=== PATIENT | female | born 1980 | race Caucasian/White ===

== ENCOUNTER 2025-03-24 15:49 | Emergency (ER) | payer SELFPAY ==
[2025-03-24] VITALS (10 sets, daily range): BP systolic 110–166; BP diastolic 76–114; PULSE 73–106; RESP 17–100; TEMP 36.2–37; O2SAT 97–100; BMI 34.0
--- NOTE | 2025-03-24 16:11 | CT_ITS ---
PROCEDURE INFORMATION: Exam: CT Head Without Contrast Exam date and time: 03/24/2025 5:32 PM Age: 44 years old Clinical indication: Pain; Headache; Additional info: Worse GEORGE TECHNIQUE: Imaging protocol: Computed tomography of the head without contrast. Radiation optimization: All CT scans at this facility use at least one of these dose optimization techniques: automated exposure control; mA and/or kV adjustment per patient size (includes targeted exams where dose is matched to clinical indication); or iterative reconstruction. COMPARISON: CT HEAD/BRAIN WO CON 03/24/2025 5:32 PM FINDINGS: Brain: No acute intracranial hemorrhage, midline shift, or mass effect. Cerebral ventricles: No ventriculomegaly. Paranasal sinuses: Visualized sinuses are unremarkable. No fluid levels. Mastoid air cells: Visualized mastoid air cells are well aerated. Teeth: Edentulism. Scattered dental caries and periapical lucencies. Bones: Unremarkable. No acute fracture. Soft tissues: Unremarkable. IMPRESSION: No acute intracranial findings.
--- NOTE | 2025-03-24 16:11 | CT_ITS ---
PROCEDURE INFORMATION: Exam: CTA Head With Contrast, Arteriography Exam date and time: 03/24/2025 5:35 PM Age: 44 years old Clinical indication: Headache and visual disturbance; Type not specified; Additional info: Worse GEORGE, positional TECHNIQUE: Imaging protocol: Computed tomographic angiography of the head with contrast. Exam focused on the arteries. 3D rendering (Not supervised by radiologist): MIP and/or 3D reconstructed images were created by the technologist. Radiation optimization: All CT scans at this facility use at least one of these dose optimization techniques: automated exposure control; mA and/or kV adjustment per patient size (includes targeted exams where dose is matched to clinical indication); or iterative reconstruction. Contrast material: ISOVUE; Contrast volume: 80 ml; Contrast route: INTRAVENOUS (IV); COMPARISON: CT HEAD/BRAIN WO CON 03/24/2025 5:32 PM FINDINGS: ANTERIOR CIRCULATION: Right internal carotid artery: Intracranial segment is patent with no significant stenosis. No aneurysm. Right middle cerebral artery: No occlusion or significant stenosis. No aneurysm. Right anterior cerebral artery: No occlusion or significant stenosis. No aneurysm. Left internal carotid artery: Intracranial segment is patent with no significant stenosis. No aneurysm. Left middle cerebral artery: No occlusion or significant stenosis. No aneurysm. Left anterior cerebral artery: No occlusion or significant stenosis. No aneurysm. POSTERIOR CIRCULATION: Right vertebral artery: No occlusion or significant stenosis. No aneurysm. Left vertebral artery: No occlusion or significant stenosis. No aneurysm. Basilar artery: No occlusion or significant stenosis. No aneurysm. Right posterior cerebral artery: No occlusion or significant stenosis. No aneurysm. Left posterior cerebral artery: No occlusion or significant stenosis. No aneurysm. Brain: No definite mass, mass effect, or midline shift. Cerebral ventricles: No ventriculomegaly. Bones/joints: Unremarkable. No acute fracture. Soft tissues: Unremarkable. IMPRESSION: No large vessel occlusion or flow-limiting stenosis. PROCEDURE INFORMATION: Exam: CTA Neck With Contrast Exam date and time: 03/24/2025 5:35 PM Age: 44 years old Clinical indication: Headache and visual disturbance; Type not specified; Additional info: Worse GEORGE, positional TECHNIQUE: Imaging protocol: Computed tomographic angiography of the neck with contrast. Exam focused on the cervical segments of the vasculature. 3D rendering (Not supervised by radiologist): MIP and/or 3D reconstructed images were created by the technologist. Radiation optimization: All CT scans at this facility use at least one of these dose optimization techniques: automated exposure control; mA and/or kV adjustment per patient size (includes targeted exams where dose is matched to clinical indication); or iterative reconstruction. Contrast material: ISOVUE; Contrast volume: 75 ml; Contrast route: INTRAVENOUS (IV); COMPARISON: CT HEAD/BRAIN WO CON 03/24/2025 5:32 PM FINDINGS: Right common carotid artery: No stenosis. No dissection or occlusion. Right internal carotid artery: No stenosis of the extracranial segment. No dissection or occlusion. Right external carotid artery: No occlusion or stenosis of the origin. Left common carotid artery: No stenosis. No dissection or occlusion. Left internal carotid artery: No stenosis of the extracranial segment. No dissection or occlusion. Left external carotid artery: No occlusion or stenosis of the origin. Right vertebral artery: No stenosis. No dissection or occlusion. Left vertebral artery: Mild irregular luminal narrowing of the distal V3 segment with the suggestion of a suboccipital rind sign. Soft tissues: Unremarkable. Bones/joints: No acute fracture. IMPRESSION: Mild irregular luminal narrowing of the left vertebral artery distal V3 segment with the suggestion of a suboccipital rind sign, findings which may indicate intramural hematoma in the setting of dissection or vasculitis. REFERENCES: NASCET CRITERIA. The degree of stenosis in the cervical segment of the internal carotid artery is based on NASCET criteria. Normal is no stenosis. Mild is less than 50% stenosis. Moderate is 50-69% stenosis. Severe is 70% to 99% stenosis. Total occlusion is no detectable patent lumen.
--- NOTE | 2025-03-24 16:14 | CT_ITS ---
PROCEDURE INFORMATION: Exam: CTA Head With Contrast, Venography Exam date and time: 03/24/2025 5:35 PM Age: 44 years old Clinical indication: Pain; Headache and visual disturbance; Cta head/neck sent; Additional info: Headache dizzy blurry vision TECHNIQUE: Imaging protocol: Computed tomography angiography of the head with contrast. Exam focused on the veins. 3D rendering (Not supervised by radiologist): MIP and/or 3D reconstructed images were created by the technologist. Radiation optimization: All CT scans at this facility use at least one of these dose optimization techniques: automated exposure control; mA and/or kV adjustment per patient size (includes targeted exams where dose is matched to clinical indication); or iterative reconstruction. Contrast material: ISOVUE; Contrast volume: 80 ml; Contrast route: INTRAVENOUS (IV); COMPARISON: CT HEAD/BRAIN WO CON 03/24/2025 5:32 PM FINDINGS: Superior sagittal sinus: Patent. Straight sinus: Patent. Transverse sinuses: Patent. Sigmoid sinuses: Patent. Internal jugular veins: Limited visualized internal jugular veins are patent. Brain: No definite mass, mass effect, or midline shift. Cerebral ventricles: No ventriculomegaly. Soft tissues: Unremarkable. IMPRESSION: No evidence of dural venous sinus thrombosis.
--- OUTSIDE RECORDS SUMMARY | 2025-03-24 16:22 | XMS_ITS | Clinical Summary ---
Author Organization [facility] Address [address] [place] [address] Care Team Providers Care Laundry Tech Name Role Phone Mara Heredia MD Primary Care Provider [phone] Allergies Active Allergy Reactions Criticality Noted Date Comments Latex Other (See Comments) 03/29/2021 Skin blisters Oxycodone-Acetaminophen Rash Low 06/05/2014 Sulfa Antibiotics Itching 02/13/2021 Tilactase GI Intolerance Low 12/10/2017 Medications ibuprofen (ADVIL,MOTRIN) 800 MG tablet Take 800 mg by mouth Every 8 (Eight) Hours As Needed for Mild Pain . for pain 12/14/2020 Active losartan (COZAAR) 25 MG tablet Take 25 mg by mouth Daily. 01/04/2021 Active desvenlafaxine (PRISTIQ) 50 MG 24 hr tablet Take 50 mg by mouth Daily. 05/11/2021 Active HYDROcodone-acet aminophen (Beaver) 5-325 MG per tabletIndication s:S/P endometrial ablation Take 2 tablets by mouth Every 6 (Six) Hours As Needed for Severe Pain. 10 tablet 05/30/2021 11:45 AM EST 05/30/2021 Active Active Problems Problem Noted Date Diagnosed Date S/P endometrial ablation: 05/30/21 05/30/2021 Menorrhagia with regular cycle 02/13/2021 HPV exposure 02/13/2021 Dysmenorrhea 02/13/2021 Overweight (BMI 25.0-29.9) 02/13/2021 Adopted 02/13/2021 Screening for condition 02/13/2021 Resolved Problems Problem Noted Date Diagnosed Date Resolved Date Encounter for tubal ligation 02/13/2021 05/07/2021 Immunizations Immunization Administration Dates Next Due Hepatitis A 10/19/2018,03/08/2018 Tdap 07/13/2009 Social History Tobacco Use Types Packs/Day Years Used Date Smoking Tobacco: Every Day Cigarettes 1 20 Smokeless Tobacco: Never Alcohol Use Standard Drinks/Week Comments Not Currently 0 (1 standard drink = 0.6 oz pur e alcohol) Abuse Screen Answer Date Recorded Unsafe at Home or Work/School Not on file Feels Threatened by Someone? Not on file Does Anyone Keep You from Co ntacting Others or Doint Things Outside the Home? Not on file 04/24/2023 Physical Sign of Abuse Present Not on file 1 Housing Stability Answer Date Recorded Current Living Arrangements Not on file 04/12 Potentially Unsafe Housing Conditions Not on willis e 04/24/2023 Family and Community Support Answer Sawyer e Recorded Help with Day-to-Day Activities Not on file 04/24/2023 Lonely or Isolated Not on file 04/24/2023 Employment Answer Date Recorded Do you want help finding or keeping work or a dante b? Not on file 04/24/2023 Disabilities Answer Date Recorded Concentrating, Remembering, or Making Decisions Difficulty Not on file 04/24/2023 Doing Errands Independently Difficulty Not on fi le 04/24/2023 Education Answer Date Recorded Help with school or training? Not on file Preferred Language Not on file 04/24/2023 Comments No Sex and Gender Information Value Date Recorded Sex Assigned at Not on file Legal Sex Female 11:21 AM EDT Gender Identity Not on file Sexual Orientation Not on file Last Filed Vital Signs Vital Sign Reading Time Taken Comments Blood Pressure 136/86 06/12/2021 9:04 AM EST Pulse 66 05/30/2021 11:40 AM EST Temperature 36.5 C (97.7 F) 05/30/2021 10:43 AM EST Respiratory Rate 17 05/30/2021 11:40 AM EST Oxygen Saturation 98% 05/30/2021 11:40 AM EST Inhaled Oxygen Concentration - - Weight 76.5 kg (168 lb 9.6 oz) 06/12/2021 9:04 A M EST Height 162.6 cm (5' 4.02 ) 06/12/2021 9:04 AM ES T Body Mass Index 28.93 06/12/2021 9:04 AM EST Plan of Treatment Health Maintenance Due Date Last Done Comments Annual Gynecologic Pelvic an d Breast Exam 1979 TDAP/TD VACCINES (2 - Td or Tdap) 07/13/2019 010 ANNUAL PHYSICAL 02/13/2021 MAMMOGRAM 03/20/2023 03/20/2021 COLOGUARD 2024 COLON CANCER SCREENING 5 YEA R SIGMOIDOSCOPY 2024 COLONOSCOPY 2024 COLORECTAL CANCER SCREENING 2024 CT COLONOGRAPHY 2024 FECAL OCCULT BLOOD TEST 2024 FIT Testing (1 year) 2024 COVID-19 Vaccine ( - 2023-2 5 season) 2025 INFLUENZA VACCINE 04/12/2025 HEPATITIS C SCREENING Completed 02/24/2020 Pneumococcal Vaccine 0-49 Aged Out No longer eligible based on patient's age to complete this topic Procedures Procedure Name Priority Date/Time Associated Diagnosis Comments MAMMO SCREENING DIGITAL TOMOSYNTHESIS BILATERAL W CAD Routine 03/20/2021 10:28 AM EDT Screening for condition from Last 3 Months or Most Recently Relevant to Health Maintenance Results * Mammo Screening Digital Tomosynthesis Bilateral With CAD (03/20/2021 10:28 AM EDT) Anatomical Region Laterality Modality Breast N/A Mammography 03/20/2021 12:1 7 PM EDT Impressions 03/20/2021 12:19 PM EDT Negative baseline screening mammogram. BI-RADS CATEGORY 1: Negative Women over the age of 40 undergoing screening mammography are entered into a reminder system with target due date for the next mammogram. This report was finalized on 03/20/2021 12:[address] José Luis Russo MD. Narrative 03/20/2021 12:19 PM EDT EXAM, 03/20/2021: 1. Bilateral digital screening mammogram with CAD. 2. Bilateral digital screening breast tomosynthesis. INDICATION: 40-year-old female referred for baseline screening mammogram. TECHNIQUE: Bilateral digital screening mammogram images were obtained including digital breast tomosynthesis and CAD review. Exaggerated CC image was added on the right to better include axillary breast tissue. FINDINGS: There are scattered areas of fibroglandular density. No mammographic evidence of malignancy. Recommend repeat screening mammogram in one year. us Justin Robledo MD IMG MAMMOGRAPHY ORD ERABLES Final Result from Last 3 Months or Most Recently Relevant to Health Maintenance Care Teams Laundry Tech Relationship Specialty Start Date End Date Mara Heredia MD [address] [place] [address] PCP - General Family Medicine 02/13/21
--- NOTE | 2025-03-24 16:30 | ECG_ITS ---
APPROVED REPORT Exam: Resting ECG HR:89 bpm ECG Measurements Heart Rate 89 AXES CA 149 P 66 QRSd 73 QRS 46 QT 369 T 49 QTc 416 Conclusion SINUS RHYTHM NORMAL ECG No stemi Electronically signed by : KRISTIN DICK, 03/26/2025 00:53:22
[2025-03-24 16:32] LABS: Hematocrit 44.0 % (37.0-47.0); Hemoglobin 14.9 g/dL (12.2-16.2); Immature Granulocytes % 0.3 %; Mean Corpuscular HGB Conc 33.9 g/dL (31.8-35.4); Mean Corpuscular Hemoglobin 30.6 pg (27.0-31.2); Mean Corpuscular Volume 90.3 fl (81-99); Nucleated Red Blood Cells % 0 %; Platelet Count 202 K/mm3 (142-424); Red Blood Count 4.87 M/mm3 (4.20-5.40); Red Cell Distribution Width-SD 39.5 fL; White Blood Count 9.6 K/mm3 (4.8-10.8)
[2025-03-24 16:36] LABS: Albumin Level 4.0 g/dl (3.5-5.0); Chloride 106 mmol/L (98-107); Sodium 140 mmol/L (136-145)
[2025-03-24 16:37] LABS: Potassium 4.0 mmoL/L (3.5-5.1)
[2025-03-24 16:39] LABS: Alanine Aminotransferase 27 U/L (12-78); Albumin/Globulin Ratio 1.3 (1.1-1.8); Alkaline Phosphatase 78 U/L (38-126); Anion Gap 10.0 mEq/L (5-15); Aspartate Amino Transferase 29 U/L (14-36); Bilirubin,Total 0.3 mg/dl (0.2-1.3); Blood Urea Nitrogen 22 mg/dl (7-17); Carbon Dioxide 28 mmol/L (22.0-30.0); Creatinine Clearance Estimated 126 mL/min (50-200); Creatinine,Serum 0.80 mg/dl (0.52-1.04); Estimated Glomerular Filt Rate 78 ml/min (>60); GFR (African American) 94 ML/MIN (>60); Globulin 3.1 g/dL (1.3-3.2); Total Protein,Serum 7.1 g/dl (6.3-8.2)
[2025-03-24 16:40] LABS: Calcium 8.7 mg/dl (8.4-10.2); Glucose 98 mg/dl (74-100)
[2025-03-24] MEDS: droPERidol 5MG/2ML VIAL 2.5 MG IV (16:41)
[2025-03-24 16:46] LABS: Microscopic, Urine URINE MICROSCOPIC (MICROSCOPIC)
[2025-03-24 16:51] LABS: Urine Pregnancy, HCG Qual. Negative (Negative)
[2025-03-24 16:56] LABS: Bilirubin,Urine Negative (Negative); Color,Urine YELLOW (Yellow); Glucose,Urine (UA) Negative (Negative); Ketones,Urine Negative (Negative); Leukocyte Esterase,Urine TRACE (Negative); PH,Urine 6.0 (5.0-8.5); Protein,Urine Negative (Negative); Specific Gravity, Urine 1.025 (1.005-1.030); Urobilinogen,Urine 0.2 EU/dl (0.2)
[2025-03-24] MEDS: SODIUM CHLORIDE 0.9% 10ML SYR (RAD ONLY) 10 ML IV (17:34)
[2025-03-24] MEDS: 0.9 % SODIUM CHLORIDE 50 ML VIAL IV (17:34)
--- NOTE | 2025-03-24 17:34 | PC.NURSE ---
rounded on patient. no needs at this time. call light within reach
[2025-03-24] MEDS: IOPAMIDOL-370 (76%);100ML BOTTLE 80 ML IV (17:35)
[2025-03-24 17:45] LABS: Bacteria,Urine 1+ /lpf; Mucus,Urine 3+ /lpf
--- NOTE | 2025-03-24 18:57 | PC.NURSE ---
Called [facility] for transfer. Images have been power shared
--- NOTE | 2025-03-24 19:01 | ED_ITS ---
<Statement entered by Bebo Hackett DO - 03/25/25 16:35> I was consulted by the KANCHAN, and we discussed the complexity of problems being addressed. I approved the treatment and management plan for this patient's care in the emergency department, thus performing a substantive portion of the medical decision making. Bebo Hackett DO Discharge Plan Disposition Patient Disposition: Xfer Other Referrals Follow up/Referrals: Gregoria Huntley APRN [Primary Care Provider, Medical] - See instructions Clinical Impressions Clinical Impression: Headache Stand Alone Forms Stand Alone Forms: Transfer Record - ED Print Language Print Language: Kyrgyz Discharge ED Provider: Bebo Hackett General Adult HPI <Tiffany Mclaughlin APRN - Last Filed: 03/24/25 21:22> General Chief complaint: Headache Stated complaint: headache Time Seen by Provider: 03/24/25 16:04 Mode of Arrival: Ambulatory Source of Information: Patient Description of Symptoms (Recalled from ER Triage Doc. by RN): Pt presents with c/o migraine that has been off and on for 2 weeks. Pt states she does not have a hx of migraines, and he thought it was related to her BP so she started taking her BP meds again. History of Present Illness HPI narrative: pt is a 44 year old female PMHx bipolar who presents to the ED for 2 weeks of left sided headache that she describes as a stabbing, persistent pain. Patient states she has tried [id number] medication without relief. She has been evaluated at a different ED and advises that no one has done anything for her. She denies any history of migraines. Denies fever, chills, visual disturbances, posterior neck pain, neck stiffness, chest pain, shortness of breath, abdominal pain. Related Data Allergies Allergy/AdvReac Type Severity Reaction Status Date / Time acetaminophen (From Percocet) Allergy Hives Verified 03/24/25 16:07 oxycodone (From Percocet) Allergy Hives Verified 03/24/25 16:07 PFSH <Tiffany Mclaughlin APRN - Last Filed: 03/24/25 21:22> [facility] Disclaimer: The information contained in this section may have been updated after the patient was seen, as this information can be updated by other users. Social History Smoking Status: Never smoker alcohol intake: never current occupational status: unemployed Travel in the last 8 weeks?: None <Tiffany Mclaughlin APRN - Last Filed: 03/24/25 21:22> ROS Obtained: Yes Systems reviewed as appropriate & no additional complaints except as documented Physical Exam <Tiffany Mclaughlin APRN - Last Filed: 03/24/25 21:22> General General appearance: alert Head Head exam: atraumatic Eye Eye exam: Present PERRL and EOMI; Absent nystagmus ENT ENT exam: Present normal exam Neck Neck exam: Present normal inspection, full ROM and trachea midline; Absent tenderness or meningismus Chest Chest inspection: Present normal inspection and symmetric chest wall rise Respiratory Respiratory exam: Present normal lung sounds bilaterally Cardiovascular Cardiovascular exam: Present regular rate Abdominal Exam Abdominal exam: Present soft; Absent tenderness Back Exam Back exam: Present full ROM Neurological Exam Neurological exam: Present alert and oriented X3 Skin Skin exam: Present warm and dry Medical Decision Making <Tiffany Mclaughlin APRN - Last Filed: 03/24/25 21:22> Medical Records Screening: Per USPSTF and CDC recommendations, given the prevalence of disease in our region, it is our hospital?s policy to screen for HIV and viral Hepatitis for all patients aged 18 and over and those with ongoing risk factors. Pool Inquiry Pt receiving controlled substance: No Vital Signs: 03/24/25 15:57 03/24/25 16:18 03/24/25 16:30 Temperature 97.2 F L Temperature Source Temporal Artery Scan Pulse Rate 81 81 Pulse Rate [Right] 106 H Respiratory Rate 18 Blood Pressure 162/113 H 166/106 H Blood Pressure [Right Arm] 137/92 H Blood Pressure Mean [Right Arm] 107 Blood Pressure Source Blood Pressure Position 02 Sat by Pulse Oximetry 97 100 100 Oxygen Delivery Method Room Air 03/24/25 16:39 03/24/25 18:01 03/24/25 19:27 Temperature Temperature Source Pulse Rate 81 89 75 Pulse Rate [Right] Respiratory Rate 17 Blood Pressure 155/114 H 123/94 H Blood Pressure [Right Arm] Blood Pressure Mean [Right Arm] Blood Pressure Source Blood Pressure Position 02 Sat by Pulse Oximetry 99 98 98 Oxygen Delivery Method 03/24/25 19:30 03/24/25 20:00 03/24/25 20:30 Temperature Temperature Source Pulse Rate 75 83 73 Pulse Rate [Right] Respiratory Rate Blood Pressure 123/92 H 129/88 110/76 Blood Pressure [Right Arm] Blood Pressure Mean [Right Arm] Blood Pressure Source Blood Pressure Position 02 Sat by Pulse Oximetry 97 99 98 Oxygen Delivery Method 03/24/25 21:16 Temperature 98.6 F Temperature Source Oral Pulse Rate 74 Pulse Rate [Right] Respiratory Rate 100 H Blood Pressure 123/92 H Blood Pressure [Right Arm] Blood Pressure Mean [Right Arm] Blood Pressure Source Automatic Cuff Blood Pressure Position Sitting 02 Sat by Pulse Oximetry Oxygen Delivery Method Room Air Lab Data Lab Results 03/24/25 16:19: WBC 9.6, RBC 4.87, Hgb 14.9, Hct 44.0, MCV 90.3, MCH 30.6, MCHC 33.9, RDW 12.0, Plt Count 202, MPV 9.8, Neut % (Auto) 75.6, Lymph % (Auto) 18.3, [place] % (Auto) 4.5, Eos % (Auto) 0.9, Baso % (Auto) 0.4, Neut # (Auto) 7.3, Lymph # (Auto) 1.8, [place] # (Auto) 0.4, Eos # (Auto) 0.1, Baso # (Auto) 0.0, Sodium 140, Potassium 4.0, Chloride 106, Carbon Dioxide 28, Anion Gap 10.0, BUN 22 H, Creatinine 0.80, Estimated Creat Clear 126, Estimated GFR 78, Est GFR ( Amer) 94, Glucose 98, Calcium 8.7, Total Bilirubin 0.3, AST 29, ALT 27, Alkaline Phosphatase 78, Total Protein 7.1, Albumin 4.0, Globulin 3.1, Albumin/Globulin Ratio 1.3 03/24/25 16:33: Urine Color Yellow, Urine Appearance Clear, Urine pH 6.0, Ur Specific [place] 1.025, Urine Protein Negative, Urine Glucose (UA) Negative, Urine Ketones Negative, Urine Blood Negative, Urine Nitrate Negative, Urine Bilirubin Negative, Urine Urobilinogen 0.2, Ur Leukocyte Esterase Trace, Urine RBC 3-5, Urine WBC 5-10, Ur Squamous Epith Cells 10-20, Urine Bacteria 1+, Urine Mucus 3+, Urine HCG, Qual Negative 03/24/25 16:19 03/24/25 16:19 Orders (Tests/Meds): ED MEDICATIONS Discontinued Medications Generic Name Dose Route Start Last Admin Trade Name Freq PRN Reason Stop Dose Admin Acetaminophen 1,000 mg 03/24/25 19:11 03/24/25 19:23 Acetaminophen 1,000mg/100ml Vial IV 03/24/25 19:12 1,000 mg ONCE ONE Administration Diphenhydramine HCl 50 mg 03/24/25 17:06 03/24/25 17:10 Diphenhydramine 50mg/Ml Vial IV 03/24/25 17:07 50 mg ONCE ONE Administration Droperidol 2.5 mg 03/24/25 16:11 03/24/25 16:41 Droperidol 5mg/2ml Vial IV 03/24/25 16:12 2.5 mg ONCE ONE Administration Iopamidol 80 ml 03/24/25 17:32 03/24/25 17:35 Iopamidol-370 (76%);100ml Bottle IV 03/24/25 17:33 80 ml ONCE ONE Administration Sodium Chloride 50 ml 03/24/25 17:32 03/24/25 17:34 0.9 % Sodium Chloride 50 Ml Vial IV 03/24/25 17:33 50 ml ONCE ONE Administration Sodium Chloride 10 ml 03/24/25 17:32 03/24/25 17:34 Sodium Chloride 0.9% 10ml Syr (Rad Only) IV 03/24/25 17:33 10 ml ONCE ONE Administration ORDERS Category Date Time Status CT Venogram head Stat Cat Scan 03/24/25 16:[address] angio head Stat Cat Scan 03/24/25 16:[address] angio neck Stat Cat Scan 03/24/25 16:[address] head/brain wo con Stat Cat Scan 03/24/25 16:11 Completed CBC w/Auto Diff [Complete Blood Count Auto Diff] Stat Lab 03/24/25 16:19 Completed CMP [Comprehensive Metabolic Panel] Stat Lab 03/24/25 16:19 Completed Urinalysis and Microscopic Stat Lab 03/24/25 16:33 Completed Urine , HCG Qual. Stat Lab 03/24/25 16:33 Completed Medical Decision Narrative: In summary, pt is a 44 year old female PMHx bipolar who presents to the ED for 2 weeks of left sided headache that she describes as a stabbing, persistent pain. Patient states she has tried [id number] medication without relief. She has been evaluated at a different ED and advises that no one has done anything for her. She denies any history of migraines. Denies fever, chills, visual disturbances, posterior neck pain, neck stiffness, chest pain, shortness of breath, abdominal pain. Upon initial evaluation, she is alert and oriented neuroexam is normal. No nystagmus, PERRLA, EOMI. No weakness. Differential diagnosis include migraine, ICH, mass, aneurysm, venous thrombosis, infectious process, among others. Labs reviewed, CBC unremarkable for any leukocytosis, stable H&H. CMP overall unremarkable. Urinalysis unremarkable for any infectious process. Patient symptomatically managed with droperidol, she reports that her tongue feels hot after the droperidol. Immediately evaluated the patient, no airway edema, clear lung sounds bilaterally. Patient was given Benadryl IV after reporting that her tongue feels weird. She was evaluated by the attending at bedside. Patient remains hemodynamically stable, 100% on room air. Head CT reviewed, no acute intracranial findings. Head CTA unremarkable for any large vessel occlusion. Neck CTA remarkable for irregular luminal narrowing of the distal V3 segment with suggestion of a suboccipital rind sign, may represent intramural hematoma in the setting of dissection or vasculitis. CTV unremarkable for any dural venous sinus thrombosis. I spoke to [facility] documentation coordinator about the neck CTA finding, they accept patient as a transfer to their neurology services for further evaluation. Upon discussion with patient, she request more pain medication. She is requesting Tylenol specifically. I advised her and her of the CT findings, need for transfer. Patient is agreeable to be transferred by ambulance to [facility] at this time. She remains hemodynamically stable. <Bebo Hackett DO - Last Filed: 03/24/25 21:22> Medical Records Medical records reviewed: Yes I reviewed the patient's medical records. Vital Signs: 03/24/25 15:57 03/24/25 16:18 03/24/25 16:30 Temperature 97.2 F L Temperature Source Temporal Artery Scan Pulse Rate 81 81 Pulse Rate [Right] 106 H Respiratory Rate 18 Blood Pressure 162/113 H 166/106 H Blood Pressure [Right Arm] 137/92 H Blood Pressure Mean [Right Arm] 107 Blood Pressure Source Blood Pressure Position 02 Sat by Pulse Oximetry 97 100 100 Oxygen Delivery Method Room Air 03/24/25 16:39 03/24/25 18:01 03/24/25 19:27 Temperature Temperature Source Pulse Rate 81 89 75 Pulse Rate [Right] Respiratory Rate 17 Blood Pressure 155/114 H 123/94 H Blood Pressure [Right Arm] Blood Pressure Mean [Right Arm] Blood Pressure Source Blood Pressure Position 02 Sat by Pulse Oximetry 99 98 98 Oxygen Delivery Method 03/24/25 19:30 03/24/25 20:00 03/24/25 20:30 Temperature Temperature Source Pulse Rate 75 83 73 Pulse Rate [Right] Respiratory Rate Blood Pressure 123/92 H 129/88 110/76 Blood Pressure [Right Arm] Blood Pressure Mean [Right Arm] Blood Pressure Source Blood Pressure Position 02 Sat by Pulse Oximetry 97 99 98 Oxygen Delivery Method 03/24/25 21:16 Temperature 98.6 F Temperature Source Oral Pulse Rate 74 Pulse Rate [Right] Respiratory Rate 100 H Blood Pressure 123/92 H Blood Pressure [Right Arm] Blood Pressure Mean [Right Arm] Blood Pressure Source Automatic Cuff Blood Pressure Position Sitting 02 Sat by Pulse Oximetry Oxygen Delivery Method Room Air Lab Data Lab Results 03/24/25 16:19: WBC 9.6, RBC 4.87, Hgb 14.9, Hct 44.0, MCV 90.3, MCH 30.6, MCHC 33.9, RDW 12.0, Plt Count 202, MPV 9.8, Neut % (Auto) 75.6, Lymph % (Auto) 18.3, [place] % (Auto) 4.5, Eos % (Auto) 0.9, Baso % (Auto) 0.4, Neut # (Auto) 7.3, Lymph # (Auto) 1.8, [place] # (Auto) 0.4, Eos # (Auto) 0.1, Baso # (Auto) 0.0, Sodium 140, Potassium 4.0, Chloride 106, Carbon Dioxide 28, Anion Gap 10.0, BUN 22 H, Creatinine 0.80, Estimated Creat Clear 126, Estimated GFR 78, Est GFR ( Amer) 94, Glucose 98, Calcium 8.7, Total Bilirubin 0.3, AST 29, ALT 27, Alkaline Phosphatase 78, Total Protein 7.1, Albumin 4.0, Globulin 3.1, Albumin/Globulin Ratio 1.3 03/24/25 16:33: Urine Color Yellow, Urine Appearance Clear, Urine pH 6.0, Ur Specific [place] 1.025, Urine Protein Negative, Urine Glucose (UA) Negative, Urine Ketones Negative, Urine Blood Negative, Urine Nitrate Negative, Urine Bilirubin Negative, Urine Urobilinogen 0.2, Ur Leukocyte Esterase Trace, Urine RBC 3-5, Urine WBC 5-10, Ur Squamous Epith Cells 10-20, Urine Bacteria 1+, Urine Mucus 3+, Urine HCG, Qual Negative Orders (Tests/Meds): ED MEDICATIONS Discontinued Medications Generic Name Dose Route Start Last Admin Trade Name Freq PRN Reason Stop Dose Admin Acetaminophen 1,000 mg 03/24/25 19:11 03/24/25 19:23 Acetaminophen 1,000mg/100ml Vial IV 03/24/25 19:12 1,000 mg ONCE ONE Administration Diphenhydramine HCl 50 mg 03/24/25 17:06 03/24/25 17:10 Diphenhydramine 50mg/Ml Vial IV 03/24/25 17:07 50 mg ONCE ONE Administration Droperidol 2.5 mg 03/24/25 16:11 03/24/25 16:41 Droperidol 5mg/2ml Vial IV 03/24/25 16:12 2.5 mg ONCE ONE Administration Iopamidol 80 ml 03/24/25 17:32 03/24/25 17:35 Iopamidol-370 (76%);100ml Bottle IV 03/24/25 17:33 80 ml ONCE ONE Administration Sodium Chloride 50 ml 03/24/25 17:32 03/24/25 17:34 0.9 % Sodium Chloride 50 Ml Vial IV 03/24/25 17:33 50 ml ONCE ONE Administration Sodium Chloride 10 ml 03/24/25 17:32 03/24/25 17:34 Sodium Chloride 0.9% 10ml Syr (Rad Only) IV 03/24/25 17:33 10 ml ONCE ONE Administration ORDERS Category Date Time Status CT Venogram head Stat Cat Scan 03/24/25 16:[address] angio head Stat Cat Scan 03/24/25 16:[address] angio neck Stat Cat Scan 03/24/25 16:[address] head/brain wo con Stat Cat Scan 03/24/25 16:11 Completed CBC w/Auto Diff [Complete Blood Count Auto Diff] Stat Lab 03/24/25 16:19 Completed CMP [Comprehensive Metabolic Panel] Stat Lab 03/24/25 16:19 Completed Urinalysis and Microscopic Stat Lab 03/24/25 16:33 Completed Urine , HCG Qual. Stat Lab 03/24/25 16:33 Completed ECG Data Tracing #1: I reviewed this ECG and interpreted as documented below: EKG personally interpreted by me demonstrates normal sinus rhythm with a rate of 89 bpm, normal axis, no NV prolongation, narrow QRS, no QTc prolongation. No ST elevation or depression. No overt signs of ischemia or arrhythmia. Critical Care <Tiffany Mclaughlin APRN - Last Filed: 03/24/25 21:22> Critical Care Time Critical Care Time: No
--- NOTE | 2025-03-24 19:02 | PC.NURSE ---
KALIA Box is on the phone with [facility] stroke navigator now.
[2025-03-24] MEDS: ACETAMINOPHEN 1,000MG/100ML VIAL 1000 MG IV (19:23)
--- NOTE | 2025-03-24 19:36 | PC.NURSE ---
Blanca Calderon at [facility], pt room currently being cleaned. Pt will be going to [facility]. EMS to transport, call [phone] when 10 min out to arrive at [facility]. Report to [phone].
--- NOTE | 2025-03-24 21:15 | PC.NURSE ---
Report to Travis VERDIN, pt going to [id number]
== END 2025-03-24 21:15 | disposition other institution (70) ==
PROVIDERS: Nurse Practitioner; Emergency Provider Student in an Organized Health Care Education/Training Program; PCP Nurse Practitioner
DX: R51.9 Headache, unspecified (principal)
CPT/HCPCS: 70450; 70496; 70498; 80053; 81001; 81025; 85025; 93005; 96374; 96375; 99285; J0131; J1200; J1790; Q9967